=== PATIENT | male | born 1940 | race Caucasian/White ===

== ENCOUNTER 2020-03-04 06:35 | Day surgery (SDC) | payer OTHER ==
[2020-03-04 09:05] VITALS: BMI 21.4
[2020-03-04] MEDS ORDERED: PHENYLEPHRINE HCL 10 MG/1 ML SINGLE DOSE VIAL ONE (10:48)
[2020-03-04] MEDS ORDERED: EPINEPHrine 1:10,000 (P-F SYR) 1 MG/10 ML DISP.SYRIN ONE (10:52)
[2020-03-04] MEDS ORDERED: ONDANSETRON 4 MG/2 ML VIAL IVPUSH PRN (12:37)
[2020-03-04 14:11] VITALS: BP 118/79; PULSE 78; TEMP 97.7
== END 2020-03-04 14:19 ==
LOC: JASU-SURG 06:35
PROVIDERS: ATTEND Urology
PROC: 0TF4XZZ Fragmentation in Left Kidney Pelvis, External Approach (ICD-10-PCS; principal; 2020-03-04 10:15)
DX: N20.0 Calculus of kidney (principal)
CPT/HCPCS: 94760

== ENCOUNTER 2020-04-16 10:52 | Inpatient (IN) | payer OTHER, BC ==
[2020-04-16 12:45] LABS: VENOUS BASE EXCESS 0.8 mmol/L (-2-2); VENOUS O2 SATURATION 59.3 % (70-80); VENOUS PH 7.241 (7.310-7.410)
[2020-04-16 12:46] LABS: BASO % 0.3 % (0-2.0); HEMATOCRIT 41.4 % (35.4-49); HEMOGLOBIN 12.6 GM/dL (11.7-16.9); INR 1.71 (0.83-1.09); LYMPH % 8.9 % (8-40); MCH 31.4 pg (25.7-33.7); MCHC 30.5 g/dl (32.0-35.9); MEAN CELL VOLUME 102.8 fl (80-96); MEAN PLT VOLUME 11.7 fl (7.5-11.1); MONO % 5.1 % (3.8-10.2); NEUT % 85.7 % (42.8-82.8); PLATELET COUNT 149 K/MM3 (134-434); PROTHROMBIN TIME (PATIENT) 20.4 SEC (9.7-13.0); RBC 4.03 M/mm3 (4.00-5.60); RDW 16.7 % (11.9-15.9); WHITE BLOOD COUNT 18.6 K/mm3 (4.0-10.0)
[2020-04-16 12:47] LABS: VENOUS PCO2 72.6 mmHg (38-52)
[2020-04-16 12:49] LABS: ACTIVATED PTT 35.3 SECONDS (25.2-36.5)
[2020-04-16 13:03] LABS: POTASSIUM 4.4 mmol/L (3.5-5.1)
[2020-04-16 13:05] LABS: CALCIUM 10.6 mg/dL (8.5-10.1)
[2020-04-16 13:06] LABS: ALBUMIN 2.3 g/dl (3.4-5.0)
[2020-04-16 13:08] LABS: BILIRUBIN,DIRECT 0.2 mg/dL (0.0-0.2)
[2020-04-16] MEDS ORDERED: AZTREONAM 1 GM in DEXTROSE 5%-WATER - 50 ML IVPB ONE (13:08)
[2020-04-16] MEDS ORDERED: VANCOMYCIN 1,000 MG in DEXTROSE 5%-WATER - 250 ML IVPB ONE (13:08)
[2020-04-16 13:09] LABS: CREATININE 4.2 mg/dL (0.55-1.3)
[2020-04-16 13:10] LABS: BILIRUBIN,TOTAL 0.3 mg/dL (0.2-1); TOT PROT 7.1 g/dl (6.4-8.2)
[2020-04-16] MEDS ORDERED: SODIUM CHLORIDE 1,000 ML IV STA ×2 (13:10→14:11)
[2020-04-16] MEDS ORDERED: AZTREONAM 1 GM VIAL (RESTRICTED TO ID) ONE (13:16)
[2020-04-16] MEDS ORDERED: VANCOMYCIN 1 GRAM (PRE-DOCKED) 1,000 MG/250 ML BAG IVPB ONE (13:47)
[2020-04-16 14:00] LABS: BLOOD UREA NITROGEN 143.8 mg/dL (7-18)
[2020-04-16 14:11] LABS: EPI CELLS >36 /uL (0-25.1); HYALINE CASTS 125 /uL (0-3.1); PH,URINE 8.5 (5.0-8.0); URINE APPEARANCE CLOUDY; URINE BILIRUBIN 3+ (NEGATIVE); URINE COLOR RED; URINE GLUCOSE (UA) NEGATIVE (NEGATIVE); URINE KETONE NEGATIVE (NEGATIVE); URINE LEUK ESTERASE 3+ (NEGATIVE); URINE NITRITE POSITIVE (NEGATIVE); URINE PROTEIN 3+ (NEGATIVE); URINE UROBILINOGEN 0.2 mg/dL (0.2-1.0); URINE WBC 5354 /uL (0-25.8)
[2020-04-16 14:19] LABS: URINE BACTERIA NON /uL (0-1359); URINE RBC >35205 /uL (0-23.9); YEAST NON (NEGATIVE)
[2020-04-16 15:07] LABS: CREATININE, URINE RANDOM 74.4 mg/dL (30-150)
[2020-04-16] MEDS ORDERED: AZTREONAM 1 GM VIAL (RESTRICTED TO ID) IVPB SCH (19:15)
[2020-04-16] MEDS: DEXTROSE 5%-NORMAL SALINE 1,000 ML IV SCH ×2 (21:19→21:30)
[2020-04-16] MEDS ORDERED: SODIUM CHLORIDE 0.45% 1,000 ML IV SCH (21:30)
[2020-04-16] MEDS ORDERED: APIXABAN 5 MG TABLET PO SCH (22:00)
[2020-04-16] MEDS ORDERED: levETIRAcetam 500 MG/5 ML INJECTION VIAL IVPB ONE ×2 (22:45→23:15)
[2020-04-16] MEDS: LEVETIRACETAM 1000 MG PO SCH (23:12)
[2020-04-16] MEDS: ENOXAPARIN NA (PORCINE) 80 MG/0.8 ML DISP.SYRIN SQ SCH (23:39)
[2020-04-17] MEDS: AZTREONAM 0.5 GM in DEXTROSE 5%-WATER - 50 ML IVPB SCH ×2 (01:23→13:35)
[2020-04-17 09:32] LABS: HEMATOCRIT 33.3 % (35.4-49); HEMOGLOBIN 10.3 GM/dL (11.7-16.9); MEAN PLT VOLUME 11.6 fl (7.5-11.1); PLATELET COUNT 129 K/MM3 (134-434); RBC 3.33 M/mm3 (4.00-5.60); RDW 16.1 % (11.9-15.9); WHITE BLOOD COUNT 12.9 K/mm3 (4.0-10.0)
[2020-04-17 10:07] LABS: ALBUMIN 1.9 g/dl (3.4-5.0); BILIRUBIN,TOTAL 0.4 mg/dL (0.2-1); CALCIUM 9.2 mg/dL (8.5-10.1); POTASSIUM 3.6 mmol/L (3.5-5.1); TOT PROT 5.8 g/dl (6.4-8.2)
[2020-04-17 10:09] LABS: BLOOD UREA NITROGEN 130.8 mg/dL (7-18)
[2020-04-17] MEDS ORDERED: SODIUM CHLORIDE 0.45% 1,000 ML IV SCH (10:30)
[2020-04-17] MEDS: SODIUM CHLORIDE 0.45% 1,000 ML IV SCH (12:46)
[2020-04-17] MEDS: LEVETIRACETAM 1000 MG PO SCH (12:47)
[2020-04-17] MEDS ORDERED: AZTREONAM 1 GM VIAL (RESTRICTED TO ID) ONE (13:26)
[2020-04-17] MEDS ORDERED: DEXTROSE 5%-WATER - 50 ML IVPB ONE (13:26)
[2020-04-17] MEDS: PANTOPRAZOLE SODIUM 40 MG VIAL IVPUSH SCH (13:35)
[2020-04-17] MEDS: AMINO ACIDS 4.25%/D5W 1,000 ML IV SCH (15:56)
[2020-04-17] MEDS ORDERED: levETIRAcetam 500 MG/5 ML INJECTION VIAL IVPB SCH (22:00)
[2020-04-17] MEDS: levETIRAcetam 500 MG/5 ML INJECTION VIAL IVPB SCH (22:34)
[2020-04-17] MEDS: ENOXAPARIN NA (PORCINE) 80 MG/0.8 ML DISP.SYRIN SQ SCH (22:35)
[2020-04-18] MEDS ORDERED: AZTREONAM 1 GM VIAL (RESTRICTED TO ID) ONE ×3 (00:58→11:26)
[2020-04-18] MEDS ORDERED: DEXTROSE 5%-WATER - 50 ML IVPB ONE ×3 (00:59→11:26)
[2020-04-18] MEDS: AZTREONAM 0.5 GM in DEXTROSE 5%-WATER - 50 ML IVPB SCH ×3 (02:18→23:53)
[2020-04-18] MEDS: SODIUM CHLORIDE 0.45% 1,000 ML IV SCH (06:00)
[2020-04-18] MEDS ORDERED: SODIUM CHLORIDE 0.45% 1,000 ML IV SCH (08:56)
[2020-04-18 10:17] LABS: BASO % 0.1 % (0-2.0); HEMATOCRIT 36.3 % (35.4-49); HEMOGLOBIN 11.3 GM/dL (11.7-16.9); LYMPH % 3.2 % (8-40); MCH 30.8 pg (25.7-33.7); MCHC 31.2 g/dl (32.0-35.9); MEAN CELL VOLUME 98.8 fl (80-96); MEAN PLT VOLUME 11.1 fl (7.5-11.1); MONO % 1.9 % (3.8-10.2); NEUT % 94.8 % (42.8-82.8); PLATELET COUNT 129 K/MM3 (134-434); RBC 3.67 M/mm3 (4.00-5.60); RDW 15.9 % (11.9-15.9); WHITE BLOOD COUNT 13.7 K/mm3 (4.0-10.0)
[2020-04-18 10:34] LABS: ALBUMIN 1.8 g/dl (3.4-5.0)
[2020-04-18 10:35] LABS: CALCIUM 9.2 mg/dL (8.5-10.1)
[2020-04-18 10:37] LABS: CREATININE 2.4 mg/dL (0.55-1.3)
[2020-04-18 10:40] LABS: TOT PROT 5.8 g/dl (6.4-8.2)
[2020-04-18 10:42] LABS: BILIRUBIN,TOTAL 0.8 mg/dL (0.2-1)
[2020-04-18 10:53] LABS: POTASSIUM 2.8 mmol/L (3.5-5.1)
[2020-04-18 10:54] LABS: BLOOD UREA NITROGEN 118.2 mg/dL (7-18)
[2020-04-18] MEDS ORDERED: SODIUM CHLORIDE 0.45%/POT 20 MEQ/1,000 ML INFUS.BAG IV SCH (11:00)
[2020-04-18] MEDS: levETIRAcetam 500 MG/5 ML INJECTION VIAL IVPB SCH ×2 (11:05→21:16)
[2020-04-18] MEDS: AMINO ACIDS 4.25%/D5W 1,000 ML IV SCH ×3 (11:30→17:18)
[2020-04-18] MEDS: PANTOPRAZOLE SODIUM 40 MG VIAL IVPUSH SCH (11:42)
[2020-04-18 11:57] LABS: ANISOCYTOSIS 1+; MACROCYTOSIS 1+; PLATELET ESTIMATE DECREASED
[2020-04-18] MEDS: KCL 10 MEQ IVPB 10 MEQ/100 ML INFUS.BAG IVPB SCH ×3 (12:58→17:17)
[2020-04-18 15:37] VITALS: BMI 18.4
[2020-04-18] MEDS ORDERED: KCL 10 MEQ IVPB 10 MEQ/100 ML INFUS.BAG IVPB SCH (16:30)
[2020-04-18] MEDS ORDERED: ACETAMINOPHEN 1000 MG/100 ML VIAL (NON FORMULARY) IVPB PRN (17:50)
[2020-04-18] MEDS: POTASSIUM CHLORIDE 40 MEQ in DEXTROSE 5%-WATER - 1,000 ML IV SCH (20:39)
[2020-04-18] MEDS: ENOXAPARIN NA (PORCINE) 80 MG/0.8 ML DISP.SYRIN SQ SCH (22:03)
[2020-04-19] MEDS: PANTOPRAZOLE SODIUM 40 MG VIAL IVPUSH SCH (10:31)
[2020-04-19] MEDS: levETIRAcetam 500 MG/5 ML INJECTION VIAL IVPB SCH ×2 (10:31→23:48)
[2020-04-19] MEDS: AMINO ACIDS 4.25%/D5W 1,000 ML IV SCH (11:26)
[2020-04-19 12:07] LABS: BASO % 0.1 % (0-2.0); HEMATOCRIT 32.6 % (35.4-49); LYMPH % 3.2 % (8-40); MCH 31.1 pg (25.7-33.7); MCHC 30.8 g/dl (32.0-35.9); MEAN PLT VOLUME 11.7 fl (7.5-11.1); MONO % 1.4 % (3.8-10.2); NEUT % 95.3 % (42.8-82.8); PLATELET COUNT 116 K/MM3 (134-434); RBC 3.23 M/mm3 (4.00-5.60); RDW 16.6 % (11.9-15.9); WHITE BLOOD COUNT 14.5 K/mm3 (4.0-10.0)
[2020-04-19 12:28] LABS: POTASSIUM 3.2 mmol/L (3.5-5.1)
[2020-04-19 12:29] LABS: CALCIUM 9.3 mg/dL (8.5-10.1)
[2020-04-19 12:30] LABS: ALBUMIN 1.5 g/dl (3.4-5.0); MAGNESIUM 2.8 mg/dL (1.8-2.4)
[2020-04-19 12:33] LABS: CREATININE 2.2 mg/dL (0.55-1.3)
[2020-04-19 12:34] LABS: BILIRUBIN,TOTAL 0.5 mg/dL (0.2-1); TOT PROT 5.6 g/dl (6.4-8.2)
[2020-04-19] MEDS: AZTREONAM 0.5 GM in DEXTROSE 5%-WATER - 50 ML IVPB SCH (12:38)
[2020-04-19 12:42] LABS: ANISOCYTOSIS 1+; MACROCYTOSIS 0; PLATELET ESTIMATE DECREASED
[2020-04-19 12:45] LABS: BLOOD UREA NITROGEN 107.5 mg/dL (7-18)
[2020-04-19 12:46] LABS: PHOSPHOROUS 1.1 mg/dL (2.5-4.9)
[2020-04-19] MEDS ORDERED: POTASSIUM PHOSPHATE 30 MM in DEXTROSE 5%-WATER - 500 ML IVPB ONE (14:00)
[2020-04-19] MEDS: POTASSIUM CHLORIDE 40 MEQ in DEXTROSE 5%-WATER - 1,000 ML IV SCH ×3 (14:01→23:48)
[2020-04-19] MEDS ORDERED: ACETAMINOPHEN 1000 MG/100 ML VIAL (NON FORMULARY) IVPB ONE (22:03)
[2020-04-19] MEDS: ENOXAPARIN NA (PORCINE) 80 MG/0.8 ML DISP.SYRIN SQ SCH (22:07)
[2020-04-20] MEDS: AZTREONAM 0.5 GM in DEXTROSE 5%-WATER - 50 ML IVPB SCH ×2 (00:57→14:09)
[2020-04-20] MEDS: POTASSIUM CHLORIDE 40 MEQ in DEXTROSE 5%-WATER - 1,000 ML IV SCH ×2 (05:46→20:53)
[2020-04-20] MEDS: AMINO ACIDS 4.25%/D5W 1,000 ML IV SCH ×2 (05:48→23:59)
[2020-04-20] MEDS: PANTOPRAZOLE SODIUM 40 MG VIAL IVPUSH SCH (11:22)
[2020-04-20] MEDS: levETIRAcetam 500 MG/5 ML INJECTION VIAL IVPB SCH ×2 (11:22→21:53)
[2020-04-20] MEDS ORDERED: PT OWN MED DRAWER 7, Y5N ONE (13:28)
[2020-04-20 13:48] LABS: BASO % 0.3 % (0-2.0); HEMATOCRIT 39.2 % (35.4-49); HEMOGLOBIN 12.1 GM/dL (11.7-16.9); LYMPH % 4.2 % (8-40); MCH 31.2 pg (25.7-33.7); MEAN CELL VOLUME 100.7 fl (80-96); MEAN PLT VOLUME 11.7 fl (7.5-11.1); MONO % 1.3 % (3.8-10.2); NEUT % 94.2 % (42.8-82.8); PLATELET COUNT 105 K/MM3 (134-434); RBC 3.89 M/mm3 (4.00-5.60); RDW 17.3 % (11.9-15.9)
[2020-04-20 14:09] LABS: POTASSIUM 4.3 mmol/L (3.5-5.1)
[2020-04-20 14:12] LABS: CALCIUM 9.1 mg/dL (8.5-10.1)
[2020-04-20 14:13] LABS: ALBUMIN 1.4 g/dl (3.4-5.0)
[2020-04-20 14:16] LABS: PHOSPHOROUS 2.5 mg/dL (2.5-4.9)
[2020-04-20 14:17] LABS: ANISOCYTOSIS 0; BILIRUBIN,TOTAL 1.4 mg/dL (0.2-1); MACROCYTOSIS 0; PLATELET ESTIMATE DECREASED; TOT PROT 5.7 g/dl (6.4-8.2)
[2020-04-20 14:51] LABS: BLOOD UREA NITROGEN 105.3 mg/dL (7-18)
[2020-04-20] MEDS: ENOXAPARIN NA (PORCINE) 80 MG/0.8 ML DISP.SYRIN SQ SCH (21:53)
[2020-04-21] MEDS: AZTREONAM 0.5 GM in DEXTROSE 5%-WATER - 50 ML IVPB SCH ×2 (00:47→11:53)
[2020-04-21] MEDS ORDERED: PT OWN MED DRAWER 7, Y5N ONE (10:25)
[2020-04-21] MEDS: PANTOPRAZOLE SODIUM 40 MG VIAL IVPUSH SCH (10:46)
[2020-04-21] MEDS: levETIRAcetam 500 MG/5 ML INJECTION VIAL IVPB SCH ×2 (10:48→23:08)
[2020-04-21] MEDS: POTASSIUM CHLORIDE 40 MEQ in DEXTROSE 5%-WATER - 1,000 ML IV SCH (17:17)
[2020-04-21] MEDS: AMINO ACIDS 4.25%/D5W 1,000 ML IV SCH (18:11)
[2020-04-21] MEDS: ENOXAPARIN NA (PORCINE) 80 MG/0.8 ML DISP.SYRIN SQ SCH (23:08)
[2020-04-22] MEDS: AZTREONAM 0.5 GM in DEXTROSE 5%-WATER - 50 ML IVPB SCH (01:34)
[2020-04-22] MEDS: POTASSIUM CHLORIDE 40 MEQ in DEXTROSE 5%-WATER - 1,000 ML IV SCH ×2 (01:34→16:45)
[2020-04-22] MEDS: levETIRAcetam 500 MG/5 ML INJECTION VIAL IVPB SCH ×2 (10:45→21:40)
[2020-04-22] MEDS: PANTOPRAZOLE SODIUM 40 MG VIAL IVPUSH SCH (10:46)
[2020-04-22] MEDS ORDERED: MORPHINE SULFATE 2 MG/ML VIAL IVPUSH PRN (11:39)
[2020-04-22] MEDS: AMINO ACIDS 4.25%/D5W 1,000 ML IV SCH (13:54)
[2020-04-22] MEDS ORDERED: AMINO ACIDS 4.25%/D5W 1,000 ML IV SCH (13:58)
[2020-04-22] MEDS ORDERED: POTASSIUM CHLORIDE 40 MEQ in DEXTROSE 5%-WATER - 1,000 ML IV SCH (14:15)
[2020-04-22] MEDS: ENOXAPARIN NA (PORCINE) 80 MG/0.8 ML DISP.SYRIN SQ SCH (22:45)
[2020-04-23 03:09] VITALS: BP 62/32; TEMP 97.6
[2020-04-23 04:29] VITALS: PULSE 62
== END 2020-04-23 07:49 | disposition expired | DRG 871 ==
LOC: JER 10:52 → JERBED 15:30 → J5S 18:14
PROVIDERS: ADMIT Internal Medicine; ATTEND Internal Medicine
PROC: 05HM33Z Insertion of Infusion Device into Right Internal Jugular Vein, Percutaneous Approach (ICD-10-PCS; principal; 2020-04-22)
PROC: B513ZZA Fluoroscopy of Right Jugular Veins, Guidance (ICD-10-PCS; 2020-04-22)
DX: A41.89 Other specified sepsis (principal); R65.21 Severe sepsis with septic shock; G93.41 Metabolic encephalopathy; J96.01 Acute respiratory failure with hypoxia; N17.9 Acute kidney failure, unspecified; E87.0 Hyperosmolality and hypernatremia; G81.93 Hemiplegia, unspecified affecting right nondominant side; N13.6 Pyonephrosis; N40.0 Benign prostatic hyperplasia without lower urinary tract symptoms; D64.9 Anemia, unspecified; F03.90 Unspecified dementia, unspecified severity, without behavioral disturbance, psychotic disturbance, mood disturbance, and anxiety; I10 Essential (primary) hypertension; G40.909 Epilepsy, unspecified, not intractable, without status epilepticus; E78.5 Hyperlipidemia, unspecified; R41.82 Altered mental status, unspecified; E86.0 Dehydration; D72.829 Elevated white blood cell count, unspecified; Z66 Do not resuscitate; I46.9 Cardiac arrest, cause unspecified
CPT/HCPCS: 36415; 70450-TC; 71045-TC-FY; 76775-TC; 76856-TC; 80053; 81003; 82248; 82550; 82553; 82565; 82728; 82803; 82962; 83605; 83615; 83735; 84100; 84156; 84300; 84484; 85025; 85027; 85610; 85730; 86140; 87040; 87086; 87804; 93005; 93010; 99285-25; C9803; G0480; J0131; J3480; U0003